=== PATIENT | female | born 1990 | race Two or more races ===

== ENCOUNTER 2021-06-20 01:08 | Emergency (ER) | payer OTHER ==
[~2021-06-20] VITALS: Ht 157.5 cm; Wt 72.6 kg
[~2021-06-20 01:08] MED LIST: FOLIC ACID1 MG PO; PRENATAL TABLE1 EAC1 PO
== END 2021-06-20 04:47 ==
LOC: ER 01:08
DX: R06.02 Shortness of breath (principal)

== ENCOUNTER 2022-06-12 17:53 | Emergency (ER) | payer OTHER ==
[~2022-06-12] VITALS: Ht 157.5 cm; Wt 79.4 kg
== END 2022-06-12 22:10 | disposition home or self-care (01) ==
LOC: ER 17:53
DX: O26.91 Pregnancy related conditions, unspecified, first trimester (principal); Z3A.01 Less than 8 weeks gestation of pregnancy; R10.2 Pelvic and perineal pain; Z88.2 Allergy status to sulfonamides

== ENCOUNTER 2022-07-10 08:38 | Emergency (ER) | payer OTHER ==
[~2022-07-10] VITALS: Ht 157.5 cm; Wt 79.4 kg
[2022-07-10] MEDS ORDERED: PEPCID AC20 MG PO (14:58)
[2022-07-10] MEDS ORDERED: ONDANSETRON ODT4 MG PO (14:58)
== END 2022-07-10 15:09 ==
LOC: ER 08:38
DX: O21.0 Mild hyperemesis gravidarum (principal); Z3A.15 15 weeks gestation of pregnancy; Z20.822 Contact with and (suspected) exposure to COVID-19

== ENCOUNTER 2023-05-06 08:56 | Emergency (ER) | payer OTHER ==
[~2023-05-06] VITALS: Ht 157.5 cm; Wt 86.6 kg
[~2023-05-06 08:56] MED LIST changes: +ONDANSETRON ODT4 MG PO; +PEPCID AC20 MG PO
[2023-05-06 11:11] LABS: HEMOGLOBIN 12.4 g/dL (12.0-15.00); MEAN CORPUSCULAR HGB CONC 35.3 g/dl (32.0-36.0); PLATELET COUNT 288 K/uL (150-450); RED BLOOD COUNT 4.12 M/uL (4.00-6.00); RED CELL DISTRIBUTION WIDTH 13.4 % (11.5-14.5)
[2023-05-06 11:23] LABS: URINE APPEARANCE Cloudy; URINE BILIRRUBIN Negative (NEGATIVE); URINE BLOOD Trace; URINE COLOR Yellow; URINE GLUCOSE Negative (NEGATIVE); URINE LEUKOCYTE Small; URINE NITRATE Negative; URINE PROTEIN Trace (NEGATIVE)
[2023-05-06 11:29] LABS: URINE EPITHELIAL CELLS 40.3 uL (0.0-38.8); URINE RBC 16.6 uL (0.0-20.8); URINE WBC 70.9 uL (0.0-23.2)
[2023-05-06 12:12] LABS: CALCIUM 8.7 mg/dL (8.5-10.1); CREATININE SERUM 0.55 mg/dL (0.55-1.02); GFR 128.09; POTASSIUM 3.72 mEq/L (3.5-5.1)
== END 2023-05-06 16:04 | disposition home or self-care (01) ==
LOC: ER 08:56
PROVIDERS: Emergency Medicine
DX: O23.41 Unspecified infection of urinary tract in pregnancy, first trimester (principal); N39.0 Urinary tract infection, site not specified; K52.9 Noninfective gastroenteritis and colitis, unspecified; Z3A.08 8 weeks gestation of pregnancy; Z88.2 Allergy status to sulfonamides; Z88.8 Allergy status to other drugs, medicaments and biological substances

== ENCOUNTER 2023-07-15 10:37 | Outpatient (CLI) | payer OTHER | END 2023-07-15 10:39 | disposition home or self-care (01) | LOC: PRENATAL 10:37 | PROVIDERS: ATTEND Obstetrics & Gynecology Maternal & Fetal Medicine | DX: O35.9XX0 Maternal care for (suspected) fetal abnormality and damage, unspecified, not applicable or unspecified (principal); O35.3XX0 Maternal care for (suspected) damage to fetus from viral disease in mother, not applicable or unspecified; O44.00 Complete placenta previa NOS or without hemorrhage, unspecified trimester; Z3A.19 19 weeks gestation of pregnancy ==